=== PATIENT | male | born 1935 | race Caucasian/White ===

== ENCOUNTER → 2019-10-24 | Outpatient (CLI) | payer MEDICARE ==
[~2019-10-24] MED LIST: ENOXAPARIN60 MG/0.6 SQ; LIPITOR20 MG PO; LORAZEPAM INJ 2 MG/ML VIAL ONE; MULTIVITAMINS1 EAC8 PO; NORCO 5-325 TA1 EACH PO; NORCO 7.5-3251 EACH PO; PLAVIX75 MG PO; TOPROL XL100 MG PO; TRAMADOL-ACETAMI1 EA PO; TRIBENZOR 40-51 EAC1 PO; UBIQUINOL100 MG PO; VITAMIN B-121000 MCG PO
--- NOTE | 2019-10-24 14:55 | Diagnostic Imaging Report ---
MRI SPINE LUMBAR WO HISTORY: Low back pain COMPARISON: Report from lumbar spine MRI dated 03/29/2014 TECHNIQUE: Sagittal T1, sagittal T2, sagittal STIR, axial T2, coronal T2, and axial proton density weighted images of the lumbar spine were obtained without contrast. Motion and noise artifacts obscure some details. DISCUSSION: Number of non-rib bearing lumbar vertebral bodies: 5. Alignment: Normal lordosis. Lumbar levoscoliosis is centered at L4-L5. Vertebrae: No fractures, infection or neoplasm. Conus medullaris: Normal, ends at L2. Cauda equina: No masses or arachnoiditis. Posterior paraspinal muscles: Posterior incision changes are present. There is mild paraspinal muscle atrophy and edema in the lower lumbar spine. Soft tissues: Approximately 2.7 cm exophytic cyst in the right kidney is partially imaged. Distended bladder is also partially imaged. Infrarenal abdominal aortic aneurysm measures up to 4 cm. Multilevel advanced lumbar disc degeneration with multilevel inflammatory endplate changes is present. T12-L1: Patent canal and foramina. L1-L2: Disc bulge without significant canal or foraminal stenosis. L2-L3: There is mild retrolisthesis of L2 on L3. Mild to moderate canal stenosis due to disc bulge and ligamentum flavum thickening. Mild right and moderate left foraminal stenoses due to disc bulge and facet arthrosis. The exiting left L2 nerve root may be impinged. L3-L4: There is mild retrolisthesis of L3 on L4. Laminectomy changes without significant central canal stenosis. However, both lateral recesses are slightly effaced. Moderate to severe right and moderate left foraminal stenoses due to disc bulge and facet arthrosis. Both exiting L3 nerve root may be impinged. L4-L5: There is minimal retrolisthesis of L4 and L5. Moderate canal stenosis due to disc bulge and ligamentum flavum thickening. Both lateral recesses are effaced. Severe right and moderate to severe left foraminal stenoses due to disc bulge and facet arthrosis. Both exiting L4 nerve roots are likely impinged. L5-S1: Moderate to severe bilateral foraminal stenoses due to disc bulge and facet arthrosis. Both exiting L5 nerve roots are likely impinged. No significant canal present. IMPRESSION: 1. Multilevel advanced lumbar disc degeneration with nonspecific multilevel inflammatory endplate changes and mild levoscoliosis centered at L4-L5. 2. Laminectomy changes at L3-L4. 3. Multilevel degenerative canal stenoses - moderate at L4-L5. 4. Multilevel degenerative foraminal stenoses - moderate to severe on the right at L3-L4; severe right and moderate to severe left at L4-L5; moderate to severe bilaterally at L5-S1. 5. Infrarenal abdominal aortic aneurysm measures up to 4 cm. Signed by: Dr. Andre Del Valle M.D. on 10/24/2019 2:52 PM
== END ==
LOC: MRI 12:28
PROVIDERS: ATTEND Psychiatry & Neurology Neurology
DX: M48.062 Spinal stenosis, lumbar region with neurogenic claudication (principal)
CPT/HCPCS: 72148; J2060

== ENCOUNTER → 2020-02-25 | Outpatient (CLI) | payer MEDICARE ==
[~2020-02-25] MED LIST changes: +ALDACTONE25 MG PO; +ASPIRIN81 MG PO; +CELEXA10 MG PO; +FISH OIL 1,0001 EAC2 PO; +FLONASE ALLERG9.9 ML; +GLUCOSAMIN-CHO1 EACH PO; -LORAZEPAM INJ 2 MG/ML VIAL ONE; +PATADAY2.5 ML; +TRAMADOL HCL100 MG PO
[2020-02-25 12:21] LABS: BASOPHILS % 0.5 % (0.0-1.0); EOSINOPHILS # (AUTO) 0.2 (0.0-0.4); EOSINOPHILS % 3.1 % (0.0-6.0); HEMATOCRIT 35.2 % (38.2-49.6); HEMOGLOBIN 11.4 g/dL (14.0-18.0); LYMPHOCYTES # (AUTO) 2.5 (1.0-3.2); LYMPHOCYTES % 34.4 % (18.0-39.1); MEAN CORPUSCULAR HEMOGLOBIN 30.8 pg (28-32); MEAN CORPUSCULAR HGB CONC 32.4 g/dL (31-35); MEAN CORPUSCULAR VOLUME 95.1 fL (81-99); MONOCYTES # (AUTO) 1.1 (0.2-0.8); MONOCYTES % 14.3 % (4.4-11.3); NEUTROPHILS # (AUTO) 3.5 (2.1-6.9); NEUTROPHILS % 47.2 % (38.7-80.0); PLATELET COUNT 210 x10e3/uL (140-360); RED CELL DISTRIBUTION WIDTH 12.7 % (11.7-14.4)
== END | disposition home or self-care (01) ==
LOC: DX 09:44 → EDSTATUS 02-28 10:00
PROVIDERS: ATTEND Internal Medicine Gastroenterology
DX: K92.1 Melena (principal); R13.10 Dysphagia, unspecified; Z68.32 Body mass index [BMI] 32.0-32.9, adult; Z01.810 Encounter for preprocedural cardiovascular examination; Z01.812 Encounter for preprocedural laboratory examination; Z11.59 Encounter for screening for other viral diseases; Z53.8 Procedure and treatment not carried out for other reasons
CPT/HCPCS: 36415; 85025; 87635; 93005

== ENCOUNTER → 2020-06-26 | Day surgery (SDC) | payer MEDICARE, OTHER ==
[2020-06-23 12:14] LABS: BASOPHILS # (AUTO) 0.1 (0.0-0.1); BASOPHILS % 0.7 % (0.0-1.0); EOSINOPHILS # (AUTO) 0.2 (0.0-0.4); EOSINOPHILS % 2.1 % (0.0-6.0); LYMPHOCYTES # (AUTO) 1.8 (1.0-3.2); LYMPHOCYTES % 24.6 % (18.0-39.1); MEAN CORPUSCULAR HEMOGLOBIN 30.6 pg (28-32); MEAN CORPUSCULAR HGB CONC 32.4 g/dL (31-35); MEAN CORPUSCULAR VOLUME 94.4 fL (81-99); MONOCYTES # (AUTO) 0.8 (0.2-0.8); MONOCYTES % 10.6 % (4.4-11.3); NEUTROPHILS # (AUTO) 4.4 (2.1-6.9); NEUTROPHILS % 61.7 % (38.7-80.0); PLATELET COUNT 201 x10e3/uL (140-360); RED CELL DISTRIBUTION WIDTH 12.9 % (11.7-14.4)
[~2020-06-26] MED LIST changes: +FENTANYL CITRATE/PF 100MCG/2 ML INJ ONE; +MIDAZOLAM HCL 2 MG/2 ML VIAL ONE; +ONDANSETRON HCL INJ 2MG/ML 2ML 2 MG/ML VIAL ONE; +PROPOFOL IV EMULSION 10 MG/ML 20 ML VIAL ONE
[2020-06-26 10:46] VITALS: BP 179/87
--- NOTE | 2020-06-26 16:27 | Operative Report ---
DATE OF PROCEDURE: 06/26/2020 SURGEON: Jay Griffin MD PROCEDURE PERFORMED: Esophagogastroduodenoscopy and colonoscopy. PREOPERATIVE DIAGNOSES: Dysphagia and hematochezia. POSTOPERATIVE DIAGNOSES: Hiatal hernia, gastritis, diverticulosis, and internal hemorrhoids. PREOPERATIVE MEDICATIONS: Consisted of MAC anesthesia. DESCRIPTION OF PROCEDURE: EGD: Using [employer] video gastroscope was inserted into the patient's oropharynx and advanced down the hypopharynx into the esophagus. The mucosa apparently in the esophagus was normal, down at 38 cm was a hiatal hernia from 38 to 40 cm. No reflux disease was noted. The stomach was entered and insufflated with air. The mucosa apparently in the cardia, fundus, body, and antrum was viewed. There was evidence of a gastritis, but no evidence of ulcerations. A biopsy was obtained down the antrum looking for H. pylori infection. The motility was normal. The pylorus was visualized and entered. The duodenal bulb and postbulbar duodenum were found to be within normal limits. The endoscope was then withdrawn back up into the stomach, back up into the esophagus, hypopharynx, oropharynx, and out of the patient's mouth and the procedure was ended. Colonoscopy: After normal digital rectal examination, [employer] YRIS video colonoscope was inserted into the patient's rectum and advanced without difficulty to the level of the cecum. The colon was studied from that level back down to the rectum. Scattered diverticula were seen in the sigmoid and descending colon. No evidence of any bleeding was seen. Down in the rectum, there were evidence of a grade 2 internal hemorrhoids. The colonoscope was withdrawn from the patient's rectum and the procedure was ended. Jay Griffin MD SAF/MODL /[id number]
== END | disposition home or self-care (01) ==
LOC: OR 08:02
PROVIDERS: ATTEND Internal Medicine Gastroenterology
DX: K29.70 Gastritis, unspecified, without bleeding (principal); Z86.010 Personal history of colon polyps; R13.10 Dysphagia, unspecified; K44.9 Diaphragmatic hernia without obstruction or gangrene; K57.30 Diverticulosis of large intestine without perforation or abscess without bleeding; K64.1 Second degree hemorrhoids; G47.33 Obstructive sleep apnea (adult) (pediatric); I10 Essential (primary) hypertension; I25.810 Atherosclerosis of coronary artery bypass graft(s) without angina pectoris; Z01.810 Encounter for preprocedural cardiovascular examination; Z01.812 Encounter for preprocedural laboratory examination; Z11.59 Encounter for screening for other viral diseases; Z79.02 Long term (current) use of antithrombotics/antiplatelets; Z79.82 Long term (current) use of aspirin; Z68.32 Body mass index [BMI] 32.0-32.9, adult; Z95.1 Presence of aortocoronary bypass graft; Z95.5 Presence of coronary angioplasty implant and graft
CPT/HCPCS: 36415; 43239; 45378; 85025; 93005; J2405; J2704; U0002; J2250; J3010

== ENCOUNTER → 2021-08-18 | Day surgery (SDC) | payer MEDICARE ==
[2021-08-14 13:55] LABS: BASOPHILS % 0.4 % (0.0-1.0); EOSINOPHILS # (AUTO) 0.2 (0.0-0.4); EOSINOPHILS % 2.4 % (0.0-6.0); HEMATOCRIT 36.2 % (38.2-49.6); HEMOGLOBIN 11.3 g/dL (14.0-18.0); LYMPHOCYTES # (AUTO) 2.2 (1.0-3.2); LYMPHOCYTES % 26.9 % (18.0-39.1); MEAN CORPUSCULAR HEMOGLOBIN 28.4 pg (28-32); MEAN CORPUSCULAR HGB CONC 31.2 g/dL (31-35); MONOCYTES # (AUTO) 1.1 (0.2-0.8); MONOCYTES % 13.8 % (4.4-11.3); NEUTROPHILS # (AUTO) 4.5 (2.1-6.9); NEUTROPHILS % 56.2 % (38.7-80.0); PLATELET COUNT 185 x10e3/uL (140-360); RED BLOOD COUNT 3.98 x10e6/uL (4.3-5.7); RED CELL DISTRIBUTION WIDTH 18.5 % (11.7-14.4)
[2021-08-14 14:17] LABS: ALBUMIN 3.8 g/dL (3.5-5.0); ALBUMIN/GLOBULIN RATIO 1.4 (0.8-2.0); ANION GAP 14.4 mmol/L (8-16); CALCIUM 8.7 mg/dL (8.4-10.2); CREATININE, SERUM 1.42 mg/dL (0.72-1.25); POTASSIUM 4.4 mmol/L (3.5-5.1)
[~2021-08-18] VITALS: Ht 193 cm; Wt 111.1 kg
[~2021-08-18] MED LIST changes: +ALPRAZOLAM 0.5 MG TAB ONE; +DIPHENHYDRAMINE HCL 25 MG CAP ONE; +HEPARIN SOD/SOD CHLORIDE 2,000 ML ONE; +IOPAMIDOL 370 MG/ML 200 ML INFUS..BTL INJ ONE; +LIDOCAINE HCL 2% LOCAL 20 ML VIAL ONE; -ONDANSETRON HCL INJ 2MG/ML 2ML 2 MG/ML VIAL ONE; +PEPCID20 MG PO; -PROPOFOL IV EMULSION 10 MG/ML 20 ML VIAL ONE; +SODIUM CHLORIDE 0.9% 1000ML 1,000 ML ONE; +TYLENOL325 MG PO; +UBIQUINOL100 MG; +VERAPAMIL HCL 2.5 MG/ML 2 ML VIAL ONE; +VITAMIN B-121000 MC1 PO
[2021-08-18 11:43] VITALS: BP 153/78
[2021-08-18 14:45] VITALS: BP 152/74
[2021-08-18 15:15] VITALS: BP_SYST 135; BP_SYST 147; BP_DIAS 70; BP_DIAS 73
[2021-08-18 15:30] VITALS: BP 133/72
[2021-08-18 15:42] VITALS: BP 138/66
[2021-08-18 16:10] VITALS: BP 146/82
== END | disposition home or self-care (01) ==
LOC: CATH LAB 11:25
PROVIDERS: ATTEND Internal Medicine Interventional Cardiology
DX: I25.10 Atherosclerotic heart disease of native coronary artery without angina pectoris (principal); R94.39 Abnormal result of other cardiovascular function study; I10 Essential (primary) hypertension; I25.810 Atherosclerosis of coronary artery bypass graft(s) without angina pectoris; I87.2 Venous insufficiency (chronic) (peripheral); I73.9 Peripheral vascular disease, unspecified; Z95.1 Presence of aortocoronary bypass graft; Z01.812 Encounter for preprocedural laboratory examination; Z20.822 Contact with and (suspected) exposure to COVID-19
CPT/HCPCS: 36415; 80053; 83880; 85025; 93459; C1760; C1769; C1894; J2001; J2250; J3010; J7030; Q9967; U0002; 93455; 99152

== ENCOUNTER → 2022-11-26 | Outpatient (CLI) | payer MEDICARE ==
[~2022-11-26] MED LIST changes: -ALPRAZOLAM 0.5 MG TAB ONE; -DIPHENHYDRAMINE HCL 25 MG CAP ONE; -FENTANYL CITRATE/PF 100MCG/2 ML INJ ONE; -HEPARIN SOD/SOD CHLORIDE 2,000 ML ONE; -IOPAMIDOL 370 MG/ML 200 ML INFUS..BTL INJ ONE; -LIDOCAINE HCL 2% LOCAL 20 ML VIAL ONE; -MIDAZOLAM HCL 2 MG/2 ML VIAL ONE; -SODIUM CHLORIDE 0.9% 1000ML 1,000 ML ONE; -VERAPAMIL HCL 2.5 MG/ML 2 ML VIAL ONE
== END ==
LOC: MRI 12:44
PROVIDERS: ATTEND Pain Medicine Pain Medicine
DX: M47.896 Other spondylosis, lumbar region (principal)
CPT/HCPCS: 72148